=== PATIENT | female | born 1960 | race Caucasian/White ===

== ENCOUNTER 2019-06-02 18:54 | Emergency (ER) | payer OTHER ==
[~2019-06-02] VITALS: Ht 167.6 cm; Wt 63.6 kg
[2019-06-02 19:13] VITALS: BP 119/56
[2019-06-02] MEDS ORDERED: ALBU8.5H8 INH (20:40)
[2019-06-02] MEDS ORDERED: BUDE10.2 INH (20:40)
[2019-06-02] MEDS ORDERED: AZIT-63 PO (20:40)
[2019-06-02] MEDS ORDERED: PRED20TA PO (20:40)
[2019-06-02] MEDS ORDERED: FLUT1DIS7 INH (20:40)
[2019-06-02 21:14] LABS: CLARITY,URINE CLEAR (Clear); COLOR,URINE YELLOW (Yellow); GLUCOSE, URINE NEGATIVE (Neg); KETONES,URINE NEGATIVE (Neg); LEUKOCYTE ESTERASE ,URINE NEGATIVE (Neg); NITRITES, URINE NEGATIVE (Neg); OCCULT BLOOD,URINE NEGATIVE (Neg); PROTEIN,URINE NEGATIVE (Neg); UROBILINOGEN,URINE 0.2 E.U/dL (0.2-1.0)
[2019-06-02 21:24] LABS: UA COLLECTION TYPE CLN CATCH MIDSTREAM
== END 2019-06-02 20:56 | disposition home or self-care (01) ==
LOC: ER 18:56
DX: J45.909 Unspecified asthma, uncomplicated (principal); Z98.890 Other specified postprocedural states; Z88.8 Allergy status to other drugs, medicaments and biological substances; Z79.2 Long term (current) use of antibiotics; Z79.899 Other long term (current) drug therapy
CPT/HCPCS: 81003; 93005; 99284

== ENCOUNTER 2019-06-19 16:39 | Emergency (ER) | payer OTHER ==
[~2019-06-19] VITALS: Ht 167.6 cm; Wt 65.9 kg
[~2019-06-19 16:39] MED LIST: ALBU8.5H8 INH; AZIT-63 PO; BUDE10.2 INH; FLUT1DIS7 INH
[2019-06-19 17:51] LABS: BASOPHILS # (AUTO) 0.1 X10'3 (0-0.2); BASOPHILS % (AUTO) 0.8 % (0-1); EOSINOPHILS # (AUTO) 0.3 X10'3 (0-0.9); EOSINOPHILS % (AUTO) 2.9 % (0-6); HEMATOCRIT 40.6 % (35.0-45.0); LYMPHOCYTES # (AUTO) 2.7 X10'3 (1.1-4.8); LYMPHOCYTES % (AUTO) 28.4 % (21-51); MEAN CORPUSCULAR HEMOGLOBIN 31.7 PG (27.0-31.0); MEAN CORPUSCULAR HGB CONC 34.5 g/dL (33.0-36.5); MEAN CORPUSCULAR VOLUME 91.9 FL (78-98); MONOCYTES # (AUTO) 0.6 X10'3 (0-0.9); MONOCYTES % (AUTO) 6.6 % (2-12); NEUTROPHILS # (AUTO) 5.8 X10'3 (1.8-7.7); NEUTROPHILS % (AUTO) 61.3 % (42-75); PLATELET COUNT 244 X10'3 (140-440); RED BLOOD COUNT 4.42 X10'6 (4.20-5.60); RED CELL DISTRIBUTION WIDTH 12.8 % (11.5-14.5); WHITE BLOOD COUNT 9.4 X10'3 (4.5-11.0)
[2019-06-19] MEDS ORDERED: predniSONE 20 mg tablet PO ONE (17:55)
[2019-06-19] MEDS ORDERED: LIDOcaine 40mg/ml topical solution IH ONE (17:55)
[2019-06-19 18:07] LABS: ALANINE AMINOTRANSFERASE 29 U/L (12-78); ALBUMIN 4.3 G/DL (3.4-5.0); ALBUMIN/GLOBULIN RATIO 1.3 (1.1-1.5); ALKALINE PHOSPHATASE 115 IU/L (46-116); ANION GAP 11 (8-16); ASPARTATE AMINO TRANSFERASE 22 U/L (10-37); BILIRUBIN,TOTAL 0.5 MG/DL (0.1-1.0); BLOOD UREA NITROGEN 12 MG/DL (7-18); BUN/CREATININE RATIO 10.9 (6.6-38.0); CALCIUM 9.4 MG/DL (8.5-10.1); CHLORIDE 106 MMOL/L (99-107); GLUCOSE 142 MG/DL (70-104); POTASSIUM 3.5 MMOL/L (3.5-5.1); SODIUM 144 MMOL/L (135-145); TOTAL CARBON DIOXIDE 27.2 MMOL/L (24-32); TOTAL PROTEIN 7.7 G/DL (6.4-8.2); eGFR 51 ML/MIN
[2019-06-19] MEDS ORDERED: acetaminophen 325mg tablet PO ONE (18:55)
[2019-06-19] MEDS ORDERED: GUAI120L55 PO (18:57)
[2019-06-19] MEDS ORDERED: PRED20TA PO (18:57)
[2019-06-19] MEDS ORDERED: [UNRECOGNIZED DRUG - CODE] INH (19:24)
[2019-06-19 19:29] VITALS: BP 113/58
== END 2019-06-19 19:32 | disposition home or self-care (01) ==
LOC: ER 16:40 → MERGE 16:40 → ER 19:32
DX: J20.8 Acute bronchitis due to other specified organisms (principal); J45.909 Unspecified asthma, uncomplicated; Z90.49 Acquired absence of other specified parts of digestive tract; Z98.890 Other specified postprocedural states; Z88.5 Allergy status to narcotic agent
CPT/HCPCS: 36415; 71045; 80053; 84484; 85025; 93005; 94640; 99284; J2001; J7512; 94760